=== PATIENT | male | born 1955 | race Caucasian/White ===

== ENCOUNTER → 2019-05-07 | Outpatient (CLI) | payer SELFPAY | PROVIDERS: Family Provider Nurse Practitioner Family; Visit Provider Urology | DX: N20.1 Calculus of ureter (principal); M47.896 Other spondylosis, lumbar region | CPT/HCPCS: 74018 ==

== ENCOUNTER 2019-06-08 09:49 | Emergency (ER) | payer BC, SELFPAY ==
[2019-06-08 09:57] VITALS: BP 135/69; PULSE 56; RESP 20; TEMP 36.4; O2SAT 98; BMI 27.0
--- NOTE | 2019-06-08 10:13 | ED_ITS ---
Entered by Suha Martinez, acting as scribe for HPI - General Adult General: Chief complaint: Back Pain/Injury Stated complaint: flank pain/groin pain Time Seen by Provider: 06/08/19 10:07 Source: patient and family Mode of arrival: ambulatory Limitations: no limitations History of Present Illness: MD complaint: BACK PAIN, RIGHT FLANK Onset (ago): day(s) (LAST NIGHT) Location: back Radiation: non-radiation Severity: mild Quality: constant Pain Consistency: constant Relieving factors: none Exacerbating factors: movement Associated symptoms: Reports no associated symptoms; Deny chest pain, dyspnea, headache(s), nausea, rash or vomiting Treatments prior to arrival: none Review of Systems General: Reports: 10 or more systems reviewed and unremarkable except in HPI and below Const: Denies: fever, chills, body aches or change in appetite Eyes: Denies: blurry vision or eye discomfort ENMT: Denies: throat pain or dental pain Card: Denies: chest pain Resp: Denies: shortness of breath GI: Denies: abdominal pain, nausea, vomiting or diarrhea : Denies: painful urination Musc: Reports: back pain; Denies: neck pain Skin/Breast: Denies: rash Neuro: Denies: headache Psych: Denies: depression King/Lymph: Denies: easy bruising All/Imm: Denies: hives PFSH ED PFSH: Statuses (acute, chronic, etc) shown below reflect problem list status as previously entered and may not be historically accurate Social History Smoking and tobacco status: former smoker Physical Exam Const: COMMON NORMALS: no apparent distress, oriented x3 and healthy appearing HENMT: COMMON NORMALS: normocephalic and head/scalp atraumatic HEAD & SCALP: normocephalic and atraumatic Eye: COMMON NORMALS: PERRL and EOMs intact bilaterally PUPIL: Yes PERRL Neck/C-Spine: COMMON NORMALS: full ROM and supple Chest: COMMONS NORMALS: inspection of chest normal and palpation of chest normal Resp: COMMON NORMALS: normal respiratory effort, no retractions, no use of accessory muscles and clear to auscultation bilaterally AUSCULTATION: clear to auscultation bilaterally Cardio: COMMON NORMALS: regular rate, regular rhythm and no murmurs RATE: regular rate RHYTHM: regular rhythm GI: COMMON NORMALS: normal to inspection, nondistended, normoactive bowel sounds, soft to palpation, non-tender and no masses PALPATION: Yes soft Extremity: COMMON NORMALS: normal to inspection and full ROM Neuro: COMMON NORMALS: oriented x3, moves all extremities and no focal motor deficits Psych: COMMON NORMALS: mental status grossly normal, thought process normal and cooperative THOUGHT PROCESS: normal thought process Skin: COMMON NORMALS: no rashes or lesions noted and no wounds GENERAL SKIN EXAM: no rashes or lesions noted Course Vital Signs: Vital signs: Vital Signs Temperature 97.6 F 06/08/19 09:57 Pulse Rate 51 L 06/08/19 12:57 Respiratory Rate 17 06/08/19 12:57 Blood Pressure 103/70 06/08/19 12:57 Pulse Oximetry 96 06/08/19 12:57 MDM - General Adult MDM Narrative: Medical decision making narrative: Patient presents here with low back pain that is likely muscular in nature. CT scan here is negative. He has no testicle pain here. He has no signs of cord compression or epidural abscess. Patient is stable for discharge and will prescribe him Naprosyn along with Robaxin. He is to follow-up with his primary care doctor in 3 to 5 days return if worsening. Lab Data: Labs: Lab Results 06/08/19 Range/Units 10:17 Urine Color Straw (Yellow) Urine Appearance Clear (CLEAR) Urine pH 6.5 (5-7) Ur Specific Gravit y 1.010 (1.005-1.030) Urine Protein Neg (Negative) Urine Glucose (UA) Norm (Normal) Urine Ketones Negative (Negative) Urine Occult Blood Neg (Negative) Urine Nitrate Negative (Negative) Urine Bilirubin Neg (NEGATIVE) Urine Urobilinogen Norm (Negative) mg/dL Ur Leukocyte Tenisha ase Negative (Negative) Urine RBC 0-4 H (0-2) /hpf Urine WBC 0-4 H (0-5) /hpf Ur Squamous Epith Cells 0-4 H (0-5) Urine Bacteria Trace (NONE) Imaging Data^: CT Abd/Pel: Radiologist's impression: Ordering Provider/Ordering MD: Kimberley Quintana MD Date of Service: 06/08/19 Procedure(s): CT abdomen pelvis con [id number] Accession Number(s): [id number] Report Number: [id number] PROCEDURE INFORMATION: Exam: CT Abdomen And Pelvis Without Contrast Exam date and time: 06/08/2019 10:54 AM Age: 63 years old Clinical indication: Pain; Other: Back; Additional info: Left flank pain / low back pain TECHNIQUE: Imaging protocol: Computed tomography of the abdomen and pelvis without contrast. Total DLP: 1077.44 mGy-cm Radiation optimization: All CT scans at this facility use at least one of these dose optimization techniques: automated exposure control; mA and/or kV adjustment per patient size (includes targeted exams where dose is matched to clinical indication); or iterative reconstruction. COMPARISON: CT abdomen pelvis w con* [id number] 02/11/2018 10:07 PM FINDINGS: Liver: There is no focal abnormality within the liver. Gallbladder and bile ducts: Multiple calcified gallstones are present. Pancreas: The pancreas is normal. Spleen: The spleen demonstrates punctate calcifications, consistent with remote granulomatous organism exposure. Adrenals: Normal. No mass. Kidneys and ureters: There is a 3 mm sized nonobstructing stone in a calyx of the mid right kidney. The left kidney is normal. There is no evidence of hydronephrosis. There is no stone along the course of either ureter. Stomach and bowel: Unremarkable. No obstruction. No mucosal thickening. Appendix: No evidence of appendicitis. Intraperitoneal space: Unremarkable. No free air. No significant fluid collection. Vasculature: The aorta demonstrates mild atherosclerotic calcification. Lymph nodes: Unremarkable. No enlarged lymph nodes. Bladder: Unremarkable as visualized. Reproductive: The prostate demonstrates mild nonspecific enlargement. The seminal vesicles are normal. Bones/joints: Unremarkable. No acute fracture. Soft tissues: Unremarkable. CT/CT abdomen pelvis con [id number] IMPRESSION: 1. No acute findings 2. Cholelithiasis 3. Right kidney stone without obstruction Discharge Plan Discharge Patient Disposition: Home, Self-Care Clinical Impression: Low back pain Qualifiers: Chronicity: acute Back pain laterality: left Sciatica presence: without sciatica Qualified Code(s): M54.5 - Low back pain Condition: Stable Prescriptions: New Robaxin-750 750 mg tablet 750 mg PO Q6H Qty: 30 RF: 0 EC-Naprosyn 500 mg tablet,delayed release (DR/EC) 500 mg PO BID PRN (Reason: pain) Qty: 20 RF: 0 No Action Lipitor 80 mg PO BEDTIME RF: 0 Flomax 0.4 mg PO BEDTIME RF: 0 Coreg 3.125 mg PO BID RF: 0 pantoprazole [Protonix] 20 mg Tablet,Delayed Release (Dr/Ec) 20 mg PO BID RF: 0 Aspir-81 81 mg Tablet,Delayed Release (Dr/Ec) 81 mg PO DAILY RF: 0 Tylenol 8 Hour 650 mg Tablet Extended Release 1,300 mg PO Q6H PRN (Reason: Pain) RF: 0 magnesium 250 mg Tablet 250 mg PO BID RF: 0 Vitamin D3 25 mcg (1,000 unit) Tablet 1,000 unit PO DAILY RF: 0 Discharge Orders: Discharge Order (Routine); Ordered 06/08/19 Ordered By: Kimberley Quintana Referrals: Galilea Blanco FNP [Family Provider] - 4-7 days Discharge Diet: Advance as tolerated Discharge Activity: Resume usual activity Patient Instructions: Low Back Strain (ED) Discharge Date/Time: 06/08/19 12:58 Coding Level of Care Code ED Digital Manager for g Twila The documentation recorded by the Juan snow Bridget Annette, accurately reflects the service I personally performed and the decisions made by Mariano schwarz Korby, MD Jun 08, 2019 09:49
[2019-06-08] MEDS: HYDROcodone-acetaminophen 7.5-325 mg Tablet 1 TAB PO (10:19)
[2019-06-08 10:22] VITALS: BP 116/76; PULSE 54; RESP 16; O2SAT 97
--- NOTE | 2019-06-08 10:25 | CTR_ITS ---
PROCEDURE INFORMATION: Exam: CT Abdomen And Pelvis Without Contrast Exam date and time: 06/08/2019 10:54 AM Age: 63 years old Clinical indication: Pain; Other: Back; Additional info: Left flank pain / low back pain TECHNIQUE: Imaging protocol: Computed tomography of the abdomen and pelvis without contrast. Total DLP: 1077.44 mGy-cm Radiation optimization: All CT scans at this facility use at least one of these dose optimization techniques: automated exposure control; mA and/or kV adjustment per patient size (includes targeted exams where dose is matched to clinical indication); or iterative reconstruction. COMPARISON: CT abdomen pelvis w con* [id number] 02/11/2018 10:07 PM FINDINGS: Liver: There is no focal abnormality within the liver. Gallbladder and bile ducts: Multiple calcified gallstones are present. Pancreas: The pancreas is normal. Spleen: The spleen demonstrates punctate calcifications, consistent with remote granulomatous organism exposure. Adrenals: Normal. No mass. Kidneys and ureters: There is a 3 mm sized nonobstructing stone in a calyx of the mid right kidney. The left kidney is normal. There is no evidence of hydronephrosis. There is no stone along the course of either ureter. Stomach and bowel: Unremarkable. No obstruction. No mucosal thickening. Appendix: No evidence of appendicitis. Intraperitoneal space: Unremarkable. No free air. No significant fluid collection. Vasculature: The aorta demonstrates mild atherosclerotic calcification. Lymph nodes: Unremarkable. No enlarged lymph nodes. Bladder: Unremarkable as visualized. Reproductive: The prostate demonstrates mild nonspecific enlargement. The seminal vesicles are normal. Bones/joints: Unremarkable. No acute fracture. Soft tissues: Unremarkable. CT/CT abdomen pelvis con [id number] IMPRESSION: 1. No acute findings 2. Cholelithiasis 3. Right kidney stone without obstruction Radiation Dose CTDIVOL = (mGy): DLP = 1077.44 (mGy-cm)
--- NOTE | 2019-06-08 10:30 | PC.NURSE ---
Patient c/o dull left flank pain that is constant. Patient states that he was bending yesterday while working on something at home and felt a pull and has had constant pain since with intermittent severe increases in pain lasting seconds to minutes. Patient does have a history of kidney stones. Denies any current urinary symptoms. Pain is 6/10 at rest and increases to 10/10 intermittently. There is nothing specific that makes it better or worse.
[2019-06-08 10:59] LABS: Bilirubin Urine Neg (NEGATIVE); Blood Urine Neg (Negative); Glucose Urine UA Norm (Normal); Ketones Urine Negative (Negative); Leukocyte Esterase Urine Negative (Negative); Nitrate Urine Negative (Negative); Protein Urine Neg (Negative); Urine Appearance Clear (CLEAR); Urine Color Straw (Yellow); Urobilinogen Urine Norm (Negative); pH Urine 6.5 (5-7)
[2019-06-08 11:10] VITALS: BP 115/69; PULSE 51; O2SAT 94
[2019-06-08 11:14] LABS: Add Urine Culture? No; Bacteria Urine TRACE; RBC Urine 0-4 /hpf (0-2); Squamous Epithelial Cell Urine 0-4 (0-5); WBC Urine 0-4 /hpf (0-5)
[2019-06-08] MEDS: dexamethasone 10 mg/mL INJ IM (12:52)
[2019-06-08 12:57] VITALS: BP 103/70; PULSE 51; RESP 17; O2SAT 96
== END 2019-06-08 12:58 | disposition home or self-care (01) ==
PROVIDERS: Emergency Provider Emergency Medicine; Family Provider Nurse Practitioner Family
DX: M54.5 Low back pain (principal); Z79.82 Long term (current) use of aspirin; Z87.891 Personal history of nicotine dependence
CPT/HCPCS: 74176; 81001; 96372; 96374; 99281; 99283; A9270; J1100

== ENCOUNTER 2020-09-03 08:13 | Outpatient (CLI) | payer BC, SELFPAY ==
--- NOTE | 2020-09-03 | XR_ITS ---
WS: [id number] Exam: XR KUB [id number] Date/Time of Exam: 09/03/2020 8:47 AM Reason For Exam: URETERAL STONE Comparison 05/07/2019. No bowel obstruction or free air. Visualized organ margins are intact. No calcifications seen over th e region of the kidneys. Bony structures appear normal. XR/XR KUB [id number] IMPRESSION: 1. No acute abdominal finding. 2. No calcifications identified in the region of the kidneys.
[2020-09-03 09:38] LABS: Prostate Specific Antigen Scr 0.76 ng/mL (0-4)
== END 2020-09-03 08:14 | disposition home or self-care (01) ==
PROVIDERS: Visit Provider Urology
DX: N20.1 Calculus of ureter (principal); Z12.5 Encounter for screening for malignant neoplasm of prostate
CPT/HCPCS: 74018; G0103

== ENCOUNTER → 2021-03-22 10:32 | Outpatient (BNVA) | payer BC, SELFPAY | PROVIDERS: Visit Provider Nurse Practitioner Family | DX: Z20.822 Contact with and (suspected) exposure to COVID-19 (principal); R05.9 Cough, unspecified; R50.9 Fever, unspecified; J06.9 Acute upper respiratory infection, unspecified; J32.9 Chronic sinusitis, unspecified | CPT/HCPCS: 87635 ==

== ENCOUNTER → 2021-08-20 11:46 | Outpatient (BNVA) | payer MEDICARE, BC, SELFPAY | PROVIDERS: Visit Provider Family Medicine | DX: Z00.00 Encounter for general adult medical examination without abnormal findings (principal); R23.2 Flushing; Z12.5 Encounter for screening for malignant neoplasm of prostate; Z13.6 Encounter for screening for cardiovascular disorders | CPT/HCPCS: 80053; 80061; 85025; G0103 ==

== ENCOUNTER → 2021-09-02 09:56 | Outpatient (BNVA) | payer MEDICARE, BC, SELFPAY | PROVIDERS: Visit Provider Surgery | DX: Z12.11 Encounter for screening for malignant neoplasm of colon (principal) ==

== ENCOUNTER → 2021-09-20 16:35 | Outpatient (BNVA) | payer MEDICARE, BC, SELFPAY | PROVIDERS: PCP Family Medicine; Visit Provider Family Medicine | DX: R53.83 Other fatigue (principal); R23.2 Flushing; Z95.5 Presence of coronary angioplasty implant and graft | CPT/HCPCS: 80053; 84443; 84484; 85025 ==

== ENCOUNTER 2021-10-29 15:19 | Emergency (ER) | payer MEDICARE, BC, SELFPAY ==
[2021-10-29 15:32] VITALS: BP 150/82; PULSE 69; RESP 15; TEMP 36.7; O2SAT 97; BMI 27.7
--- NOTE | 2021-10-29 17:08 | XRR_ITS ---
PROCEDURE INFORMATION: Exam: XR Chest Exam date and time: 10/29/2021 5:19 PM Age: 66 years old Clinical indication: Angina; Additional info: Chest pain TECHNIQUE: Imaging protocol: Radiologic exam of the chest. Views: 1 view. COMPARISON: CR XR KUB [id number] 09/03/2020 8:46 AM FINDINGS: Lungs: Unremarkable. No consolidation. Pleural spaces: Unremarkable. No pleural effusion. No pneumothorax. Heart/Mediastinum: Unremarkable. No cardiomegaly. Bones/joints: Unremarkable. XR/XR chest 1V portable [id number] IMPRESSION: No acute findings.
--- NOTE | 2021-10-29 23:08 | ECG_ITS ---
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 Measurements Intervals [place] Rate: 64 P: 52 GA: 174 QRS: 16 QRSD: 101 T: 74 QT: 415 QTc: 431 Interpretive Statements SINUS RHYTHM LOW QRS VOLTAGE IN PRECORDIAL LEADS [QRS DEFLECTION < 1.0 mV IN CHEST LEADS] ANTERIOR MYOCARDIAL INFARCTION , OF INDETERMINATE AGE [40+ ms Q WAVE AND/OR ST/T ABNORMALITY IN V3/V4] No previous ECG available for comparison Electronically Signed On 10-29-2021 23:00:20 CDT by Diamond Adame M.D. [id number]
== END 2021-10-29 19:29 | disposition left against medical advice (07) ==
PROVIDERS: Emergency Provider Family Medicine; PCP Family Medicine
DX: Z53.21 Procedure and treatment not carried out due to patient leaving prior to being seen by health care provider (principal)
CPT/HCPCS: 71045; 93005

== ENCOUNTER 2021-11-24 05:42 | Day surgery (SDC) | payer MEDICARE, BC, SELFPAY ==
[2021-11-24 06:08] VITALS: BP 130/76; PULSE 54; RESP 18; TEMP 36.3; O2SAT 97
[2021-11-24] MEDS: sodium chloride 0.9% 1,000 ML 30 ML IV (06:14)
--- NOTE | 2021-11-24 06:58 | ANES.PREANE2 ---
Pre-Anesthetic Assessment Height/Weight: Height 1.85 m Weight 94.347 kg Temp Pulse Resp BP Pulse Ox 97.3 F L 54 L 18 130/76 97 11/24/21 06:08 11/24/21 06:08 11/24/21 06:08 11/24/21 06:08 11/24/21 06:08 Preop Diagnosis: diagnostic Operation Date: 11/24/21 07:00 Proposed Procedures p Colonoscopy 91734/Z12.11(Not Applicable) - Reddy Millan MD Was Beta Suresh taken within 24 hours: N/A Was Clonidine taken within 24 hours: N/A Last intake: Intake Last Liquid Date 11/23/21 Last Liquid Time 23:45 Last Solid Date 11/22/21 Last Solid Time 17:30 Social No alcohol and No tobacco Exam alert, oriented x 3, clear to auscultation bilaterally and regular rate & rhythm Airway Submandibular: within normal limits Cervical ROM: within normal limits Mallampati: Class II Dentition: false History/ROS No significant history except as noted and No significant complaints Pulmonary None reported CV/HEM Coronary Artery Disease Hx stones Hepatic None reported GI None reported Metabolic None reported Musc/skel None reported Neuropsych None reported Anesthetic Plan ASA status: 3 Anesthesia: MAC Risk of > 500 ml blood loss (7ml/kg in children): No Medications/Allergies Home Medications Medication Instructions Recorded Confirmed Last Taken Type Lipitor 80 mg PO BEDTIME 06/08/19 11/24/21 11/21/21 History aspirin 81 mg tablet,delayed 81 mg PO DAILY 06/08/19 11/24/21 11/21/21 History release (Aspir-) cholecalciferol (vitamin D3) 25 1,000 unit PO DAILY 06/08/19 11/24/21 11/21/21 History mcg (1,000 unit) tablet (Vitamin D3) dexlansoprazole 60 mg 60 mg PO DAILY #30 cap 08/20/21 11/24/21 11/23/21 Rx capsule,biphase delayed release (Dexilant) magnesium oxide 400 mg PO BID 08/20/21 11/24/21 11/21/21 History tamsulosin 0.4 mg capsule 0.4 mg PO QDAY #30 cap 09/22/21 11/24/21 11/21/21 Rx Allergies Allergy/AdvReac Type Severity Reaction Status Date / Time No Known Allergies Allergy Verified 11/24/21 06:05 Current Medications Generic Name Dose Route Start Last Admin Trade Name Wilburq PRN Reason Stop Dose Admin Sodium Chloride 1,000 mls @ 30 mls/hr 11/24/21 06:00 11/24/21 06:14 Sodium Chloride 0.9% IV 11/25/21 05:59 30 mls/hr .Q24H HUBER Administration PFSH Anesthesia Medical History Lower urinary tract symptoms Urolithiasis Surgical History History of lithotripsy Hx of heart artery stent Family History Father , in his 80's No problems noted. Mother , in her 70's Pneumonia Social History Smoking and tobacco status: never smoked Alcohol intake: never Marital status: Current occupational status: employed History of recent travel: No Data Anesthesia Cardiac Studies: No Data to Display
--- NOTE | 2021-11-24 06:59 | P.HP_ITS ---
Same Day Surgery H&P Indication for Procedure/HPI DATE OF PROCEDURE: November 24, 2021 CHIEF COMPLAINT/INDICATIONFOR SURGICAL PROCEDURE: screeening colonoscopy PREOP DIAGNOSIS: diagnostic PLANNED PROCEDURE: Operation Date: 11/24/21 07:00 Proposed Procedures p Colonoscopy 76363/Z12.11(Not Applicable) - Reddy Millan MD Medications/Allergies* Home Medications Medication Instructions Recorded Confirmed Type Lipitor 80 mg PO BEDTIME 06/08/19 11/24/21 History aspirin 81 mg tablet,delayed 81 mg PO DAILY 06/08/19 11/24/21 History release (Aspir-) cholecalciferol (vitamin D3) 25 1,000 unit PO DAILY 06/08/19 11/24/21 History mcg (1,000 unit) tablet (Vitamin D3) magnesium oxide 400 mg PO BID 08/20/21 11/24/21 History Allergies/Adverse Reactions Allergy/AdvReac Type Severity Reaction Status Date / Time No Known Allergies Allergy Verified 11/24/21 06:05 Current Medications: Generic Name Dose Route Start Last Admin Trade Name Freq PRN Reason Stop Dose Admin Sodium Chloride 1,000 mls @ 30 mls/hr 11/24/21 06:00 11/24/21 06:14 Sodium Chloride 0.9% IV 11/25/21 05:59 30 mls/hr .Q24H HUBER Administration Pertinent History/Comorbid Conditions* Medical History (Updated 09/21/21 @ 16:48 by Ginna Wilkinson MD) Lower urinary tract symptoms Urolithiasis Surgical History (Updated 09/03/20 @ 09:43 by Morris Montejo MD) History of lithotripsy Hx of heart artery stent Family History (Updated 07/23/19 @ 14:07 by Kathy Gonzalez LPN) Father, in his 80's Mother, in her 70's Pneumonia Mother Social History Smoking and tobacco status: never smoked Alcohol intake: never Marital status: Current occupational status: employed History of recent travel: No Pertinent Exam Findings alert, oriented x 3 and regular rate & rhythm Recommendations Surgery/Procedure today Coding Level of Care Code Acute Detective Narcotics And Vice for Delanog Twila
[2021-11-24 07:26] VITALS: BP 138/68; PULSE 53; RESP 18; TEMP 36.5; O2SAT 96
[2021-11-24 07:37] VITALS: BP 136/73; PULSE 52; RESP 18; TEMP 36.3; O2SAT 98
--- NOTE | 2021-11-24 12:51 | ANE.PACU2 ---
Inpatient post-anesthesia follow up: Airway intact: Yes Vital signs: Temperature 97.3 F Pulse Rate 52 Respiratory Rate 18 Blood Pressure 136/73 Pulse Oximetry 98 Oxygen Delivery Me thod Room Air Oxygen Flow Rate Fraction of Inspir ed Oxygen Hydration adequate: Yes Nausea and vomiting: No Pain level: 1 Mental status: Baseline
== END 2021-11-24 07:56 | disposition home or self-care (01) ==
PROVIDERS: PCP Family Medicine; Visit Provider Surgery
PROC: 0DJD8ZZ Inspection of Lower Intestinal Tract, Via Natural or Artificial Opening Endoscopic (ICD-10-PCS; CPT 45378; principal; 2021-11-24 07:00)
DX: Z12.11 Encounter for screening for malignant neoplasm of colon (principal); Z79.82 Long term (current) use of aspirin; Z95.5 Presence of coronary angioplasty implant and graft; D12.5 Benign neoplasm of sigmoid colon; K64.8 Other hemorrhoids; I25.10 Atherosclerotic heart disease of native coronary artery without angina pectoris
CPT/HCPCS: 45380; 88305; J2704; J7030

== ENCOUNTER → 2021-11-30 14:55 | Outpatient (BNVA) | payer MEDICARE, BC, SELFPAY | PROVIDERS: PCP Family Medicine; Visit Provider Surgery | DX: Z09 Encounter for follow-up examination after completed treatment for conditions other than malignant neoplasm (principal) | CPT/HCPCS: 99212 ==

== ENCOUNTER → 2022-01-24 10:37 | Outpatient (BNVA) | payer MEDICARE, BC, SELFPAY | PROVIDERS: PCP Family Medicine; Visit Provider Family Medicine | DX: I25.9 Chronic ischemic heart disease, unspecified (principal); Z86.74 Personal history of sudden cardiac arrest; I25.10 Atherosclerotic heart disease of native coronary artery without angina pectoris; E78.5 Hyperlipidemia, unspecified | CPT/HCPCS: 80053; 80061; 84402; 84403; 84443 ==

== ENCOUNTER 2022-09-05 12:10 | Outpatient (CLI) | payer MEDICARE, BC, SELFPAY ==
--- NOTE | 2022-09-05 12:34 | XR_ITS ---
WS: [id number] XR KUB [id number] REASON FOR EXAM: STONES FINDINGS: No urinary tract calculi are identified. (Previous CT scan 2020 demonstrated single sub-2 mm calculus in the right kidney.). No other significant abdominal or pelvic abnormality. XR/XR KUB [id number] IMPRESSION: No urinary tract calculi identified.
== END 2022-09-05 12:11 | disposition home or self-care (01) ==
PROVIDERS: PCP Family Medicine; Visit Provider Urology
DX: N20.9 Urinary calculus, unspecified (principal)
CPT/HCPCS: 74018; 81003

== ENCOUNTER → 2025-02-27 07:17 | Outpatient (BNVA) | payer MEDICARE, BC, SELFPAY | PROVIDERS: PCP Family Medicine; Visit Provider Podiatrist Foot & Ankle Surgery | DX: L60.0 Ingrowing nail (principal) | CPT/HCPCS: 11750; 99203; J9999 ==

== ENCOUNTER → 2025-04-17 10:13 | Outpatient (BNVA) | payer MEDICARE, BC, SELFPAY | PROVIDERS: Visit Provider Podiatrist Foot & Ankle Surgery | DX: Z98.890 Other specified postprocedural states (principal) | CPT/HCPCS: 99213 ==